=== PATIENT | female | born 1955 | race Caucasian/White ===

== ENCOUNTER → 2018-05-21 09:14 | Outpatient (CLI) | payer OTHER, SELFPAY ==
[2018-05-21 11:00] LABS: Alanine Aminotransferase 42 IU/L (9-52); Albumin 4.5 g/dL (3.5-5.0); Albumin Globulin Ratio 1.6 (1.0-2.8); Alkaline Phosphatase 84 U/L (38-126); Aspartate Aminotransferase 41 IU/L (14-36); BUN Creatinine Ratio 32.9 (6-22); Bilirubin Total 0.6 mg/dL (0.2-1.3); Blood Urea Nitrogen 23 mg/dL (7-17); Calcium 9.6 mg/dL (8.4-10.2); Carbon Dioxide 28 mmol/L (22-32); Chloride 101 mmol/L (98-107); Estimated Glomerular Filt Rate > 60.0 mL/min (>60); Globulin 2.9 g/dL (1.7-4.1); Glucose 134 mg/dL (80-110); HEMOLYSIS < 15 (0-50); Potassium 4.4 mmol/L (3.4-5.1); Sodium 142 mmol/L (137-145); Total Protein 7.4 g/dL (6.3-8.2)
[2018-05-21 11:04] LABS: Hemoglobin A1C% w Est Avg Glu 6.5 % (4.0-6.0)
[2018-05-21 11:07] LABS: Microalbumi Creatinin Ratio Ur 6.2 ug/mg CR (<30); Microalbumin Urine Random 1.2 mg/dL (0-1.6)
== END ==
PROVIDERS: Family Provider Family Medicine; PCP Family Medicine; Visit Provider Family Medicine
DX: R73.9 Hyperglycemia, unspecified (principal)
CPT/HCPCS: 36415; 80053; 82043; 82570; 83036

== ENCOUNTER → 2018-08-01 10:04 | Outpatient (CLI) | payer OTHER, SELFPAY ==
[2018-08-01 13:33] LABS: Clostridium Difficile Tox PCR Negative for C. diff
== END ==
PROVIDERS: Family Provider Family Medicine; PCP Family Medicine; Visit Provider Physician Assistant
DX: R19.7 Diarrhea, unspecified (principal)
CPT/HCPCS: 87493

== ENCOUNTER → 2018-08-01 10:13 | Outpatient (CLI) | payer OTHER, SELFPAY | PROVIDERS: Family Provider Family Medicine; PCP Family Medicine; Visit Provider Physician Assistant | DX: Z53.9 Procedure and treatment not carried out, unspecified reason (principal) ==

== ENCOUNTER 2018-08-02 11:34 | Emergency (ER) | payer OTHER, SELFPAY ==
[2018-08-02 11:36] VITALS: BP 156/76; PULSE 80; RESP 14; TEMP 36.4; O2SAT 97; BMI 25.6
--- NOTE | 2018-08-02 12:01 | PC.NURSE ---
Pt has orders for out patient lab / CT. Will d/c from ED.
== END 2018-08-02 12:01 | disposition left against medical advice (07) ==
PROVIDERS: Emergency Provider Emergency Medicine; Family Provider Family Medicine; PCP Family Medicine
DX: R10.9 Unspecified abdominal pain (principal)
CPT/HCPCS: 99281

== ENCOUNTER → 2018-08-02 12:07 | Outpatient (CLI) | payer OTHER, SELFPAY ==
--- NOTE | 2018-08-02 12:36 | DI.CT.S_ITS ---
PROCEDURE: CT ABDOMEN PELVIS W CON INDICATIONS: 63 year-old woman with acute abdominal pain, left periumbilical rebound tenderness TECHNIQUE: After the administration of intravenous contrast, 5 mm thick sections acquired from the diaphragm to the symphysis. 5 mm coronal and sagittal reformats were acquired. For radiation dose reduction, the following was used: automated exposure control, adjustment of mA and/or kV according to patient size. COMPARISON: [facility], US, US ABDOMEN COMPLETE, 03/20/2018, 14:03. [facility], RG, CT KUB, 03/24/2003, 8:59. FINDINGS: Image quality: Excellent. ABDOMEN: Lung bases: Lung bases are clear. Heart size is normal. Solid organs: Liver is demonstrates nodular contour consistent with cirrhosis. There is recannulized umbilical vein consistent with portal hypertension. No hepatic masses identified. Gallbladder demonstrates mild wall thickening. No gallstones or pericholecystic fluid collection. Biliary system is non-dilated. Pancreas enhances normally. Spleen is enlarged measuring 13.4 cm and is. No adrenal nodules. Kidneys demonstrate normal size and enhancement, without hydronephrosis. Peritoneum and bowel: Bowel loops demonstrate normal wall thickness and caliber. No free fluid or air. Nodes and vessels: No retroperitoneal or mesenteric adenopathy by size criteria. Aorta and inferior vena cava are normal in size. There are periesophageal varices and gastric varices, in keeping with portal hypertension. Miscellaneous: No ventral hernias. PELVIS: Genitourinary: Bladder wall thickness is normal. Uterus is unremarkable. No adnexal mass or pathological free fluid in the cul-de-sac. Miscellaneous: No inguinal hernias or adenopathy. Bones: No suspicious bony lesions. No vertebral body compression fractures. Degenerative changes noted in the lower thoracic and lumbar spine. IMPRESSION: 1. Cirrhotic liver. 2. Splenomegaly, recannulized umbilical vein and paraesophageal and gastric varices are compatible with portal hypertension. 3. Mild gallbladder wall thickening is probably related to chronic liver disease. No gallstones. 4. No ascites. Dictated by: Kayode Manriquez M.D. on 08/02/2018 at 14:20 Approved by: Kayode Manriquez M.D. on 08/02/2018 at 14:52
[2018-08-02 12:37] LABS: Appearance Urine UA CLEAR; Bilirubin Urine UA NEGATIVE (NEGATIVE); Color Urine UA YELLOW; Glucose Urine UA 2+ g/dL (Normal); Ketones Urine UA NEGATIVE (NEGATIVE); Leukocyte Esterase Urine UA NEGATIVE (NEGATIVE); Nitrite Urine UA Negative (Negative); Occult Blood Urine UA TRACE-INTACT (Negative); Protein Urine UA NEGATIVE (Negative); Urobilinogen Urine UA 0.2 E.U./dL (0.2)
[2018-08-02 12:51] LABS: Add Manual Diff / Slide Review NO; Basophils Percent Auto 0.4 % (0-2); Eosinophils Percent Auto 2.6 % (2-4); Hematocrit 40.7 % (36-46); Lymphocytes Percent Auto 7.8 % (25-40); Mean Corpuscular HGB Conc 34.4 % (30-36); Mean Corpuscular Hemoglobin 27.9 PG (26-34); Mean Corpuscular Volume 81.1 fL (80-100); Monocytes Percent Auto 6.7 % (3-14); Neutrophils Absolute Auto 3700 /uL (3000-5900); Neutrophils Percent Auto 82.5 % (50-75); Platelet Count 91 X10^3/uL (150-400); Red Blood Cell Count 5.02 X10^6/uL (4.0-5.2); Red Cell Distribution Width 15.6 % (11.6-14.8); White Blood Cell Count 4.4 X10^3/uL (4.5-11.0)
[2018-08-02 12:52] LABS: Add Manual Diff / Slide Review NO; Basophils Percent Auto 0.3 % (0-2); Eosinophils Percent Auto 2.7 % (2-4); Hematocrit 41.1 % (36-46); Hemoglobin 14.1 g/dL (12.0-16.0); Lymphocytes Percent Auto 7.6 % (25-40); Mean Corpuscular HGB Conc 34.3 % (30-36); Mean Corpuscular Hemoglobin 27.8 PG (26-34); Mean Corpuscular Volume 81.1 fL (80-100); Monocytes Percent Auto 6.9 % (3-14); Neutrophils Absolute Auto 3800 /uL (3000-5900); Neutrophils Percent Auto 82.5 % (50-75); Platelet Count 91 X10^3/uL (150-400); Red Blood Cell Count 5.07 X10^6/uL (4.0-5.2); Red Cell Distribution Width 16.1 % (11.6-14.8); White Blood Cell Count 4.6 X10^3/uL (4.5-11.0)
[2018-08-02 13:08] LABS: Alanine Aminotransferase 46 IU/L (9-52); Albumin 4.4 g/dL (3.5-5.0); Albumin Globulin Ratio 1.5 (1.0-2.8); Alkaline Phosphatase 81 U/L (38-126); Amylase 78 U/L (30-110); Aspartate Aminotransferase 51 IU/L (14-36); Bilirubin Total 1.1 mg/dL (0.2-1.3); Blood Urea Nitrogen 15 mg/dL (7-17); Calcium 9.4 mg/dL (8.4-10.2); Carbon Dioxide 30 mmol/L (22-32); Chloride 101 mmol/L (98-107); Estimated Glomerular Filt Rate > 60.0 mL/min (>60); Globulin 2.9 g/dL (1.7-4.1); Glucose 206 mg/dL (80-110); HEMOLYSIS < 15 (0-50); Lipase 100 U/L (23-300); Sodium 142 mmol/L (137-145); Total Protein 7.3 g/dL (6.3-8.2)
[2018-08-02 13:09] LABS: Alanine Aminotransferase 49 IU/L (9-52); Albumin 4.4 g/dL (3.5-5.0); Albumin Globulin Ratio 1.6 (1.0-2.8); Alkaline Phosphatase 82 U/L (38-126); Aspartate Aminotransferase 49 IU/L (14-36); Blood Urea Nitrogen 15 mg/dL (7-17); Calcium 9.4 mg/dL (8.4-10.2); Carbon Dioxide 30 mmol/L (22-32); Chloride 100 mmol/L (98-107); Cholesterol 181 mg/dL (140-199); Estimated Glomerular Filt Rate > 60.0 mL/min (>60); Globulin 2.8 g/dL (1.7-4.1); Glucose 206 mg/dL (80-110); HDL Cholesterol 68 mg/dL (40-60); HEMOLYSIS < 15 (0-50); LDL Cholesterol Calculated 94 mg/dL (<100); Sodium 142 mmol/L (137-145); Total Protein 7.2 g/dL (6.3-8.2); Triglycerides 95 mg/dL (35-150)
[2018-08-02 13:38] LABS: Thyroid Stimulating Hormone 1.49 uIU/mL (0.47-4.68)
== END ==
PROVIDERS: Family Provider Family Medicine; PCP Family Medicine; Visit Provider Family Medicine
DX: R73.9 Hyperglycemia, unspecified (principal); Z13.220 Encounter for screening for lipoid disorders; R10.9 Unspecified abdominal pain; R19.7 Diarrhea, unspecified; Z13.29 Encounter for screening for other suspected endocrine disorder; R10.32 Left lower quadrant pain
CPT/HCPCS: 36415; 74177; 80053; 80061; 81003; 82150; 83690; 84443; 85025; 87015; 87045; 87427; 87899

== ENCOUNTER → 2018-10-01 11:02 | Outpatient (CLI) | payer OTHER, SELFPAY ==
[2018-10-01 11:39] LABS: Add Manual Diff / Slide Review NO; Basophils Percent Auto 0.6 % (0-2); Eosinophils Percent Auto 2.9 % (2-4); Hemoglobin 13.3 g/dL (12.0-16.0); Lymphocytes Percent Auto 34.1 % (25-40); Mean Corpuscular Hemoglobin 27.7 PG (26-34); Mean Corpuscular Volume 81.4 fL (80-100); Monocytes Percent Auto 9.9 % (3-14); Neutrophils Absolute Auto 1200 /uL (3000-5900); Neutrophils Percent Auto 52.5 % (50-75); Platelet Count 77 X10^3/uL (150-400); Red Blood Cell Count 4.79 X10^6/uL (4.0-5.2)
[2018-10-01 11:47] LABS: White Blood Cell Count 2.4 X10^3/uL (4.5-11.0)
[2018-10-01 11:58] LABS: Hemoglobin A1C% w Est Avg Glu 6.9 % (4.0-6.0)
[2018-10-01 13:01] LABS: Alanine Aminotransferase 37 IU/L (9-52); Albumin 4.2 g/dL (3.5-5.0); Albumin Globulin Ratio 1.8 (1.0-2.8); Alkaline Phosphatase 74 U/L (38-126); Aspartate Aminotransferase 35 IU/L (14-36); BUN Creatinine Ratio 36.7 (6-22); Bilirubin Total 0.8 mg/dL (0.2-1.3); Blood Urea Nitrogen 22 mg/dL (7-17); Calcium 9.3 mg/dL (8.4-10.2); Carbon Dioxide 27 mmol/L (22-32); Chloride 104 mmol/L (98-107); Cholesterol 173 mg/dL (140-199); Estimated Glomerular Filt Rate > 60.0 mL/min (>60); Globulin 2.4 g/dL (1.7-4.1); Glucose 143 mg/dL (80-110); HDL Cholesterol 77 mg/dL (40-60); HEMOLYSIS < 15 (0-50); LDL Cholesterol Calculated 81 mg/dL (<100); Potassium 4.4 mmol/L (3.4-5.1); Sodium 143 mmol/L (137-145); Total Protein 6.6 g/dL (6.3-8.2); Triglycerides 77 mg/dL (35-150)
== END ==
PROVIDERS: PCP Family Medicine; Visit Provider Family Medicine
DX: R10.9 Unspecified abdominal pain (principal); Z51.81 Encounter for therapeutic drug level monitoring
CPT/HCPCS: 36415; 80053; 80061; 83036; 85025

== ENCOUNTER → 2018-12-06 12:55 | Outpatient (CLI) | payer OTHER, SELFPAY | PROVIDERS: Family Provider Family Medicine; PCP Family Medicine; Visit Provider Internal Medicine Gastroenterology | DX: K31.9 Disease of stomach and duodenum, unspecified (principal) | CPT/HCPCS: 36415; 86677 ==

== ENCOUNTER → 2023-07-17 10:15 | Outpatient (CLI) | payer MEDICARE, SELFPAY ==
--- NOTE | 2023-07-17 10:20 | DI.MRI.S_ITS ---
PROCEDURE: MR ABDOMEN LIVER PROTOCOL INDICATIONS: HEPATOCELLULAR CARCINOMA / PORTAL VEIN THROMBOSIS TECHNIQUE: Coronal HASTE, axial 2D FLASH in- and [id number]; axial breath-hold T2 FSE. Dynamic axial VIBE during the administration of contrast; post-contrast coronal VIBE or 2D FLASH with fat saturation from the hepatic dome to the iliac crests. Optional diffusion weighted imaging and ADC may be performed. COMPARISON: Outside Facility, RG, CT ABDOMEN/PELVIS WITH CONTRAST, 06/27/2023, 15:57. Outside Facility, RG, CT ABDOMEN/PELVIS W/WO CONTRAST, 02/14/2023, 21:50. Outside Facility, RG, US ABDOMEN, 02/14/2023, 20:02. FINDINGS: Image quality: Excellent. Lung bases: No basal pleural effusions. Normal size heart. Severe a pill esophageal varicosities. Solid organs: Cirrhotic liver with left and caudate lobe hypertrophy, a nodular margin, and moderate diffuse intrahepatic biliary dilatation, most pronounced in the right hepatic lobe. There is diffusely decreased T1 signal throughout the right hepatic lobe. Lobulated exophytic mass in the expected location of the main portal vein and extending into the valentine hepatis region is redemonstrated. This area measures roughly 5.4 x 5.0 cm, previously 4.9 x 4.6 cm. There is irregular central vascular flow but without convincing recanalization. There is a nodular area of washout in segment four B distal to the main mass measuring roughly 2.5 cm, stable. Diffusion-weighted imaging demonstrates numerous small rounded areas of restricted diffusion throughout the left hepatic lobe most of which demonstrate washout on delayed phase imaging despite lack of arterial phase enhancement. The spleen is enlarged and measures about 12.5 cm in craniocaudal dimension. There is a splenule near the hilum. There is a subcapsular peripheral hypodensity along the inferior margin which may reflect an early infarct. No clinically significant adrenal nodules renal masses or cysts, and normal pancreatic contour where it can be seen. The gallbladder contains proteinaceous bile. The extrahepatic biliary tree is normal caliber. Nodes and vessels: The IVC is patent in the mid and distal retroperitoneum and becomes compressed in the intrahepatic portion. Large paraspinal and left upper quadrant varices are present. There is extensive recanalization of the umbilical vein which now appears expansile and has a tram track appearance. It extends directly into the tumor bulk in the valentine hepatis and is likely at least partially thrombosed. Hepatic veins empty directly into the supra hepatic IVC. The aorta is normal caliber and contour. No visible adenopathy. Bowel and peritoneum: Unenhanced bowel loops are normal in caliber. Moderate ascites. Bones and soft tissues: No ventral hernias. Bone marrow is normal in overall signal. IMPRESSION: 1. 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 There are numerous round areas throughout mainly the left hepatic liver lobe of restricted diffusion and delayed phase contrast washout highly suspicious diffuse metastatic disease or multifocal HCC. 3. Mildly enlarged spleen with a probable small splenic infarct inferiorly. 4. Moderate ascites, fairly similar in extent compared to recent CT scan. 5. Very large distal esophageal varices. Dictated by: Sheila Alston M.D. on 07/24/2023 at 22:57 Approved by: Sheila Alston M.D. on 07/24/2023 at 23:29
== END ==
PROVIDERS: Family Provider Family Medicine; PCP Family Medicine; Referring Provider Internal Medicine; Visit Provider Internal Medicine
DX: C22.0 Liver cell carcinoma (principal); I81 Portal vein thrombosis; R16.1 Splenomegaly, not elsewhere classified; R18.8 Other ascites; I85.00 Esophageal varices without bleeding; R10.11 Right upper quadrant pain
CPT/HCPCS: 74183; A9579